=== PATIENT | female | born 1980 | race Caucasian/White ===

== ENCOUNTER 2023-04-01 09:35 | Inpatient (IN) | payer OTHER ==
[2023-04-01 10:20] VITALS: BMI 25.7
[2023-04-01] MEDS ORDERED: IBUPROFEN 400 MG TABLET (FP) PO PRN (10:47)
[2023-04-01] MEDS ORDERED: BISMUTH SUBSALICYLATE 524 MG/30 ML PO PRN (10:47)
[2023-04-01] MEDS ORDERED: NALOXONE HCL (KLOXXADO) 8 MG SPRAY NS PRN (10:47)
[2023-04-01] MEDS ORDERED: ONDANSETRON *ODT* 4 MG TABLET SL PRN (10:47)
[2023-04-01] MEDS ORDERED: BENZOCAINE/MENTHOL (CHLORASEPTIC ) LOZENGE MM PRN (10:47)
[2023-04-01] MEDS ORDERED: NALOXONE HCL 0.4 MG/ML VIAL IM PRN (10:47)
[2023-04-01] MEDS ORDERED: DICYCLOMINE HCL 10 MG CAPSULE PO PRN (10:47)
[2023-04-01] MEDS ORDERED: guaiFENesin 600 MG TABLET.ER (FP) PO PRN (10:47)
[2023-04-01] MEDS ORDERED: BENZONATATE 200 MG CAPSULE PO PRN (10:47)
[2023-04-01] MEDS ORDERED: LOPERAMIDE HCL 2 MG CAPSULE PO PRN (10:47)
[2023-04-01] MEDS ORDERED: MAG HYDROX/AL HYDROX/SIMETH 30 ML UNIT-DOSE CUP PO PRN (10:47)
[2023-04-01] MEDS ORDERED: IBUPROFEN 600 MG TABLET (FP) PO PRN (10:47)
[2023-04-01] MEDS ORDERED: ALBUTEROL SO4 HFA INHALER IH PRN (10:51)
[2023-04-01] MEDS: FAMOTIDINE 20 MG TABLET PO SCH (11:00)
[2023-04-01] MEDS: METHOCARBAMOL 500 MG TABLET PO PRN (17:01)
[2023-04-01] MEDS: hydrOXYzine PAMOATE 25 MG CAPSULE (FP) PO PRN (17:01)
[2023-04-01] MEDS: NICOTINE POLACRILEX 2 MG GUM BUC PRN ×2 (17:18→21:29)
[2023-04-01] MEDS ORDERED: methaDONE HCL 10 MG TABLET PO ONE (17:43)
[2023-04-01] MEDS ORDERED: diazePAM 5 MG TABLET PO PRN (17:53)
[2023-04-01] MEDS ORDERED: diazePAM 5 MG TABLET PO ONE (17:53)
[2023-04-01] MEDS: THIAMINE HCL 100 MG TABLET (FP) PO SCH (22:10)
[2023-04-01] MEDS: MELATONIN 5 MG TABLETS PO SCH (22:10)
[2023-04-01] MEDS: diazePAM 5 MG TABLET PO SCH (22:12)
[2023-04-02] MEDS: diazePAM 5 MG TABLET PO SCH ×4 (05:49→22:14)
[2023-04-02] MEDS ORDERED: methaDONE HCL 10 MG TABLET PO SCH (06:00)
[2023-04-02] MEDS: PRENATAL VITAMINS W/ FOLIC ACID TABLET (FP) PO SCH (10:32)
[2023-04-02] MEDS: hydrOXYzine PAMOATE 25 MG CAPSULE (FP) PO PRN ×2 (10:32→22:13)
[2023-04-02] MEDS: METHOCARBAMOL 500 MG TABLET PO PRN ×2 (10:32→22:13)
[2023-04-02] MEDS: FAMOTIDINE 20 MG TABLET PO SCH (10:32)
[2023-04-02] MEDS: NICOTINE 7 MG/24 HOURS TOPICAL PATCH TD SCH (10:33)
[2023-04-02] MEDS: NICOTINE POLACRILEX 2 MG GUM BUC PRN ×3 (10:41→17:44)
[2023-04-02 11:46] LABS: HEMATOCRIT 38.6 % (32.4-45.2); HEMOGLOBIN 12.4 GM/dL (10.7-15.3); MCH 29.4 pg (25.7-33.7); MCHC 32.1 g/dl (32.0-36.0); MEAN CELL VOLUME 91.8 fl (80-96); PLATELET COUNT 245 10^3/uL (134-434); RBC 4.21 M/mm3 (3.60-5.2); RDW 17.2 % (11.6-15.6); WHITE BLOOD COUNT 4.5 K/mm3 (4.0-10.0)
[2023-04-02 11:54] LABS: POTASSIUM 4.7 mmol/L (3.5-5.1)
[2023-04-02 12:02] LABS: ALBUMIN 3.6 g/dl (3.4-5.0); BLOOD UREA NITROGEN 13.2 mg/dL (7-18); CALCIUM 9.6 mg/dL (8.5-10.1)
[2023-04-02 12:05] LABS: CREATININE 0.7 mg/dL (0.55-1.3)
[2023-04-02 12:07] LABS: TOT PROT 7.2 g/dl (6.4-8.2)
[2023-04-02 12:08] LABS: BILIRUBIN,TOTAL 0.9 mg/dL (0.2-1)
[2023-04-02] MEDS: MAGNESIUM HYDROX 2400MG/30ML ORAL SUSPENSION 30 ML CUP PO PRN (14:48)
[2023-04-02] MEDS: ACETAMINOPHEN 325 MG TABLET (FP) PO PRN (17:42)
[2023-04-02] MEDS: MELATONIN 5 MG TABLETS PO SCH (22:13)
[2023-04-02] MEDS: THIAMINE HCL 100 MG TABLET (FP) PO SCH (22:13)
[2023-04-03] MEDS: diazePAM 5 MG TABLET PO SCH ×3 (05:49→22:19)
[2023-04-03] MEDS: NICOTINE POLACRILEX 2 MG GUM BUC PRN ×2 (09:49→13:45)
[2023-04-03] MEDS: PRENATAL VITAMINS W/ FOLIC ACID TABLET (FP) PO SCH (10:27)
[2023-04-03] MEDS: hydrOXYzine PAMOATE 25 MG CAPSULE (FP) PO PRN ×2 (10:27→22:19)
[2023-04-03] MEDS: METHOCARBAMOL 500 MG TABLET PO PRN (10:28)
[2023-04-03] MEDS: FAMOTIDINE 20 MG TABLET PO SCH (10:28)
[2023-04-03] MEDS: NICOTINE 7 MG/24 HOURS TOPICAL PATCH TD SCH (10:31)
[2023-04-03] MEDS ORDERED: NICOTINE 21 MG/24 HOURS TOPICAL PATCH TD PRN (15:10)
[2023-04-03] MEDS: POLYETHYLENE GLYCOL (HEALTHYLAX) 3350 17 GM PACKET PO PRN (15:25)
[2023-04-03] MEDS: MELATONIN 5 MG TABLETS PO SCH (22:17)
[2023-04-03] MEDS: THIAMINE HCL 100 MG TABLET (FP) PO SCH (22:18)
[2023-04-04] MEDS: diazePAM 5 MG TABLET PO SCH ×2 (05:26→17:23)
[2023-04-04] MEDS: NICOTINE POLACRILEX 2 MG GUM BUC PRN ×2 (06:31→17:04)
[2023-04-04] MEDS: POLYETHYLENE GLYCOL (HEALTHYLAX) 3350 17 GM PACKET PO PRN (06:36)
[2023-04-04] MEDS: FAMOTIDINE 20 MG TABLET PO SCH (10:11)
[2023-04-04] MEDS: PRENATAL VITAMINS W/ FOLIC ACID TABLET (FP) PO SCH (10:11)
[2023-04-04] MEDS ORDERED: COLLOIDAL OATMEAL 1 BAR EACH TP PRN (10:42)
[2023-04-04] MEDS: hydrOXYzine PAMOATE 25 MG CAPSULE (FP) PO PRN (17:25)
[2023-04-04] MEDS: MAGNESIUM HYDROX 2400MG/30ML ORAL SUSPENSION 30 ML CUP PO PRN (17:27)
[2023-04-04] MEDS: METHOCARBAMOL 500 MG TABLET PO PRN (22:10)
[2023-04-04] MEDS: THIAMINE HCL 100 MG TABLET (FP) PO SCH (22:10)
[2023-04-04] MEDS ORDERED: SUVOREXANT 10 MG TABLET PO PRN (22:24)
[2023-04-05] MEDS: ACETAMINOPHEN 325 MG TABLET (FP) PO PRN (05:39)
[2023-04-05] MEDS ORDERED: diazePAM 5 MG TABLET PO ONE (06:00)
[2023-04-05 09:48] VITALS: BP 135/79; PULSE 66; RESP 18; TEMP 97.9
[2023-04-05] MEDS: PRENATAL VITAMINS W/ FOLIC ACID TABLET (FP) PO SCH (09:53)
[2023-04-05] MEDS: FAMOTIDINE 20 MG TABLET PO SCH (09:53)
== END 2023-04-05 10:05 | disposition home or self-care (01) | DRG 773 ==
LOC: YASAS 09:35 → Y6N 14:24
PROVIDERS: ADMIT Allergy & Immunology; ATTEND Surgery
PROC: HZ2ZZZZ Detoxification Services for Substance Abuse Treatment (ICD-10-PCS; principal; 2023-04-01)
DX: F10.230 Alcohol dependence with withdrawal, uncomplicated (principal); F11.20 Opioid dependence, uncomplicated; F17.210 Nicotine dependence, cigarettes, uncomplicated; F10.280 Alcohol dependence with alcohol-induced anxiety disorder; F10.282 Alcohol dependence with alcohol-induced sleep disorder; F41.9 Anxiety disorder, unspecified; J45.20 Mild intermittent asthma, uncomplicated; K21.9 Gastro-esophageal reflux disease without esophagitis; M54.50 Low back pain, unspecified; G89.29 Other chronic pain; Z62.810 Personal history of physical and sexual abuse in childhood; Z86.19 Personal history of other infectious and parasitic diseases; Z28.310 Unvaccinated for COVID-19; Z28.9 Immunization not carried out for unspecified reason
CPT/HCPCS: 36415; 80053; 85027; 86593; 86780; 87635